=== PATIENT | male | born 1995 | race Caucasian/White ===

== ENCOUNTER 2018-03-08 20:15 | Emergency (ER) | payer BC ==
--- NOTE | 2018-03-08 21:57 | ED ---
Lower Extremity - HPI Summary HPI Summary: Pt. is a 22 y.o male who presents to the ER for a left knee injury that occurred today. Pt. states that was playing flag football when he planted his left knee pain. Symptoms are mild in severity. Is able to ambulate with pain. Denies numbness, tingling or weakness. - History of Current Complaint Chief Complaint: EDExtremityLower Stated Complaint: LEFT KNEE INJURY Time Seen by Provider: 03/08/18 20:35 Hx Obtained From: Patient Pain Intensity: 3 - Allergies/Home Medications Allergies/Adverse Reactions: Allergies Allergy/AdvReac Type Severity Reaction Status Date / Time No Known Allergies Allergy Verified 03/08/18 20:19 Home Medications: Home Medications NK [No Home Medications Reported] 03/08/18 [History Confirmed 03/08/18] PMH/Surg Hx/FS Hx/Imm Hx Previously Healthy: Yes Infectious Disease History: No Infectious Disease History: Denies: Traveled Outside the [place] in Last 30 Days - Social History Occupation: Student Lives: Dormitory/Roommates Alcohol Use: Occasionally Substance Use Type: Reports: Marijuana Smoking Status (MU): Never Smoked Tobacco Review of Systems Positive: Other - Left knee pain All Other Systems Reviewed And Are Negative: Yes Physical Exam Triage Information Reviewed: Yes Vital Signs On Initial Exam: Initial Vitals Temp Pulse Resp BP Pulse Ox 98.1 F 95 15 112/70 96 03/08/18 20:17 03/08/18 20:17 03/08/18 20:17 03/08/18 20:17 03/08/18 20:17 Vital Signs Reviewed: Yes Appearance: Positive: Well-Appearing - Pt. sitting in chair in NAD. Skin: Positive: Warm, Dry Head/Face: Positive: Normal Head/Face Inspection Eyes: Positive: Normal, EOMI Neck: Positive: Supple Musculoskeletal: Positive: Other - Pain on palpation of the left lateral knee. No effusion. Full ROM. No increase in laxity. Neurological: Positive: Normal, CN Intact II-III Diagnostics - Vital Signs Vital Signs Temp Pulse Resp BP Pulse Ox 03/08/18 20:17 98.1 F 95 15 112/70 96 - Laboratory Lab Statement: Any lab studies that have been ordered have been reviewed, and results considered in the medical decision making process. Lower Extremity Course/Dx - Course Course Of Treatment: Pt. presenting for isolated left knee injury. Xray reviewed by myself and Dr. Leonard and is negative for fx or dislocation. Tank wrap and crutches placed. Will have pt. f.u with orthopedics for further evaluation is pain persist. To ice and elevate. Tylenol or Motrin for pain as directed. Pt. understands and agrees with plan. - Diagnoses Provider Diagnoses: Knee sprain Discharge - Sign-Out/Discharge Documenting (check all that apply): Patient Departure - Discharge Plan Condition: Good Disposition: HOME Patient Education Materials: Knee Sprain (ED) Referrals: Boni Leone MD [Medical Doctor] - No Primary Care Phys,NOPCP [Primary Care Provider] - Additional Instructions: Schedule a follow up appointment with orthopedics if pain persist Ice and elevate Tylenol or Motrin for pain as directed Return to ER if symptoms change or worsen - Billing Disposition and Condition Condition: GOOD Disposition: Home
[2018-03-08 22:22] VITALS: BP 129/74
--- NOTE | 2018-03-09 07:57 | RAD ---
Indication: LEFT knee pain. [place] a pop playing football. Comparison: No relevant prior exams available on the [facility] [place] PACS for comparison. Technique: LEFT knee: AP, tunnel, lateral, sunrise views. Report: Small joint effusion. No fracture or malalignment. Preserved joint spaces. Chronic appearing unfused ossicle at the tibial tubercle and mild overlying anterior soft tissue swelling. IMPRESSION: #. Small joint effusion. #. Negative for fracture. #. Chronic appearing unfused ossicle at the tibial tubercle and mild overlying anterior soft tissue swelling. Correlate for potential patellar tendinopathy. R2
--- NOTE | 2018-03-09 17:46 | ED ---
Progress - Progress Note Progress Note: Patient's final radiology read reveals "impression: #1. Small joint effusion # 2. Negative for fracture #3. Chronic appearing unfused ossicle at the tibial tuberosity and mild overlying lying anterior soft tissue swelling. Correlate for potential patellar tendinopathy." Patient was diagnosed with a knee sprain and provided with an Tank wrap as well as follow-up with orthopedics. These findings will not change the treatment plan for this patient and therefore further action is not necessary at this time. Course/Dx - Course Course Of Treatment: Pt. presenting for isolated left knee injury. Xray reviewed by myself and Dr. Leonard and is negative for fx or dislocation. Tank wrap and crutches placed. Will have pt. f.u with orthopedics for further evaluation is pain persist. To ice and elevate. Tylenol or Motrin for pain as directed. Pt. understands and agrees with plan. - Diagnoses Provider Diagnoses: Knee sprain Discharge - Sign-Out/Discharge Documenting (check all that apply): Post-Discharge Follow Up - Discharge Plan Condition: Good Disposition: HOME Patient Education Materials: Knee Sprain (ED) Referrals: Boni Leone MD [Medical Doctor] - No Primary Care Phys,NOPCP [Primary Care Provider] - Additional Instructions: Schedule a follow up appointment with orthopedics if pain persist Ice and elevate Tylenol or Motrin for pain as directed Return to ER if symptoms change or worsen - Billing Disposition and Condition Condition: GOOD Disposition: Home
== END 2018-03-08 22:21 | disposition home or self-care (01) ==
LOC: ED 20:15
DX: S83.92XA Sprain of unspecified site of left knee, initial encounter (principal); M25.462 Effusion, left knee; X58.XXXA Exposure to other specified factors, initial encounter; Y92.9 Unspecified place or not applicable
CPT/HCPCS: 99282